=== PATIENT | male | born 1990 | race Two or more races ===

== ENCOUNTER 2022-12-24 06:20 | Emergency (ER) | payer OTHER ==
[~2022-12-24] VITALS: Ht 157.5 cm; Wt 88.9 kg
[2022-12-24] MEDS ORDERED: PROVENTIL HFA6.7 GM IH (06:38)
[2022-12-24] MEDS ORDERED: MONTELUKAST SOD10 MG PO (06:38)
[2022-12-24] MEDS ORDERED: NORFLEX100MG PO (10:02)
[2022-12-24] MEDS ORDERED: DICLOFENAC SODI75 MG PO (10:02)
== END 2022-12-24 10:21 | disposition home or self-care (01) ==
LOC: ER 06:20
DX: R07.89 Other chest pain (principal); M62.838 Other muscle spasm; Z20.822 Contact with and (suspected) exposure to COVID-19